=== PATIENT | female | born 1970 | race Caucasian/White ===

== ENCOUNTER 2018-02-12 14:54 | Inpatient (IN) | payer OTHER ==
[~2018-02-12] VITALS: Ht 170.2 cm; Wt 81.5 kg
--- NOTE | 2018-02-12 15:23 | NUR ---
PT ARRIVED TO ED WITH ABD PAIN THAT HAS BEEN PRESENT FOR ABOUT 3 WEEKS. HOWEVER LAST NIGHT SHE WAS WOKEN UP WITH EPIGASTRIC PAIN AND UPPER QUADRANT PAIN. PT REPORTS THAT SHE HAD NOT FELT IT THAT BAD BEFORE. PT REPORTS UNABLE TO EAT OR DRINK ANYTHING AND MULTIPLE EPISODES OF EMESIS. PT REPORTS ALSO VERY SRINGY STOOL. PT CONNECTED TO ALL MONITORS AND CALL LIGHT IN REACH. AWAITING FURTHER ORDERS.
[2018-02-12] MEDS ORDERED: SODIUM CHLORIDE FLUSH 10ML SYR IVF ONE (16:00)
[2018-02-12] MEDS ORDERED: MORPHINE SULFATE 4 MG/ML, 1ML ONE ×2 (16:09→16:50)
[2018-02-12] MEDS ORDERED: ONDANSETRON 2MG/ML, 2ML ONE (16:09)
[2018-02-12] MEDS: MORPHINE SULFATE 4 MG/ML, 1ML IVPush PRN ×2 (16:18→17:05)
--- NOTE | 2018-02-12 16:18 | NUR ---
PT MEDICATED FOR PAIN.
[2018-02-12 16:20] LABS: BASOPHILS # (AUTO) 0.01 x10^3/uL (0-0.1); BASOPHILS % (AUTO) 0 % (0-1); EOSINOPHILS # (AUTO) 0.01 x10^3/uL (0-0.4); EOSINOPHILS % (AUTO) 0 % (1-7); LYMPHOCYTES # (AUTO) 0.49 x10^3/uL (1-3.4); LYMPHOCYTES % (AUTO) 4 % (22-44); MD NO; MEAN CORPUSCULAR HEMOGLOBIN 34.6 pg (27.0-34.8); MEAN CORPUSCULAR HGB CONC 33.4 g/dL (32.4-35.8); MEAN CORPUSCULAR VOLUME 103.6 fL (80-100); MEAN PLATELET VOLUME 8.3 fL (7.4-10.4); MONOCYTES # (AUTO) 0.51 x10^3/uL (0.2-0.8); MONOCYTES % (AUTO) 4 % (2-9); NEUTROPHILS # (AUTO) 11.05 x10^3/uL (1.8-6.8); NEUTROPHILS % (AUTO) 92 % (42-75); PLATELET COUNT 248 x10^3/uL (130-400); RED CELL DISTRIBUTION WIDTH 13.6 % (9.6-15.2)
[2018-02-12 16:22] LABS: ALANINE AMINOTRANSFERASE 190 U/L (12-78); ALBUMIN 4.6 g/dL (3.4-5.0); ANION GAP 14 mmol/L (5-15); CALCIUM 10.1 mg/dL (8.5-10.1); CHLORIDE 104 mmol/L (98-107); CREATININE 0.88 mg/dL (0.55-1.02)
[2018-02-12 16:24] LABS: ALKALINE PHOSPHATASE 100 U/L (45-117); BILIRUBIN,TOTAL 1.9 mg/dL (0.2-1.0); TOTAL PROTEIN 8.4 g/dL (6.4-8.2)
[2018-02-12] MEDS ORDERED: ONDANSETRON 2MG/ML, 2ML IVPush ONE (16:30)
--- NOTE | 2018-02-12 16:45 | NUR ---
piv fluids and second dose of morphine given.
[2018-02-12] MEDS ORDERED: SODIUM CHLORIDE 0.9% 1,000 ML IV ONE (16:59)
[2018-02-12] MEDS ORDERED: SODIUM CHLORIDE FLUSH 10ML SYR IVF PRN (17:00)
[2018-02-12] MEDS: SODIUM CHLORIDE 0.9% 1,000 ML IV SCH ×3 (17:13→23:53)
--- NOTE | 2018-02-12 17:25 | NUR ---
report to layo moura
[2018-02-12] MEDS ORDERED: PROMETHAZINE 25 MG/ML, 1ML IM PRN (17:30)
[2018-02-12] MEDS ORDERED: OMNIPAQUE 350 MG/ML, 100ML BOTTLE ONE (18:00)
[2018-02-12 18:13] VITALS: BP 155/93
[2018-02-12 19:18] VITALS: BP 135/99
[2018-02-12] MEDS: CEFTRIAXONE PMX 1GM/50ML 50 ML IV SCH (19:54)
[2018-02-12] MEDS: HEPARIN 5,000 UNITS/ML, 1ML SQ SCH (19:55)
[2018-02-12] MEDS: morphine SULFATE 10 MG/ML, 1ML IVPush PRN ×2 (20:40→23:58)
[2018-02-12] MEDS: ONDANSETRON 2MG/ML, 2ML IVPush PRN (20:41)
[2018-02-12] MEDS: METRONIDAZOLE PMX 500MG/100ML 100 ML IV SCH (20:41)
[2018-02-12] MEDS ORDERED: DIPHENHYDRAMINE 25 MG CAPSULE PO PRN (21:30)
[2018-02-13 00:50] VITALS: BP 144/94
[2018-02-13] MEDS: SODIUM CHLORIDE 0.9% 1,000 ML IV SCH ×3 (00:59→15:52)
[2018-02-13] MEDS: ONDANSETRON 2MG/ML, 2ML IVPush PRN ×3 (03:45→21:26)
[2018-02-13] MEDS: morphine SULFATE 10 MG/ML, 1ML IVPush PRN ×3 (03:46→11:25)
[2018-02-13] MEDS: METRONIDAZOLE PMX 500MG/100ML 100 ML IV SCH ×4 (03:57→21:26)
[2018-02-13 05:03] LABS: BASOPHILS # (AUTO) 0.06 x10^3/uL (0-0.1); BASOPHILS % (AUTO) 0 % (0-1); EOSINOPHILS % (AUTO) 0 % (1-7); LYMPHOCYTES % (AUTO) 3 % (22-44); MD NO; MEAN CORPUSCULAR HEMOGLOBIN 35.1 pg (27.0-34.8); MEAN CORPUSCULAR HGB CONC 33.8 g/dL (32.4-35.8); MEAN CORPUSCULAR VOLUME 103.8 fL (80-100); MEAN PLATELET VOLUME 8.1 fL (7.4-10.4); MONOCYTES % (AUTO) 7 % (2-9); NEUTROPHILS % (AUTO) 90 % (42-75); PLATELET COUNT 216 x10^3/uL (130-400); RED BLOOD COUNT 4.53 x10^6/uL (3.82-5.3); RED CELL DISTRIBUTION WIDTH 13.9 % (9.6-15.2)
[2018-02-13 05:12] LABS: ALBUMIN 3.5 g/dL (3.4-5.0); ANION GAP 9 mmol/L (5-15); CALCIUM 7.7 mg/dL (8.5-10.1); CHLORIDE 111 mmol/L (98-107)
[2018-02-13 05:15] LABS: ALANINE AMINOTRANSFERASE 117 U/L (12-78); ALKALINE PHOSPHATASE 73 U/L (45-117); BILIRUBIN,TOTAL 1.4 mg/dL (0.2-1.0); CHOL/HDL RATIO 4.6; CHOLESTEROL, TOTAL 213 mg/dL (140-239); CREATININE 0.75 mg/dL (0.55-1.02); HDL CHOL % 22 % (28-40); HDL CHOLESTEROL (DIRECT) 46 mg/dL (40-60); LDL CHOLESTEROL,CALCULATED 149 mg/dL (54-169); TOTAL PROTEIN 6.8 g/dL (6.4-8.2); TRIGLYCERIDES 88 mg/dL (50-200); VLDL CHOLESTEROL 18 mg/dL (0-25)
[2018-02-13 05:16] LABS: LDL/HDL RATIO 3.2 (0.5-3.0)
[2018-02-13] MEDS: HEPARIN 5,000 UNITS/ML, 1ML SQ SCH ×3 (05:33→23:35)
[2018-02-13] MEDS ORDERED: CALCIUM CARBONATE 500 MG TAB.CHEW PO PRN (07:00)
[2018-02-13 07:15] VITALS: BP 156/98
[2018-02-13 08:16] LABS: INTERNATIONAL NORMALIZED RATIO 1.16 (0.93-1.1); PROTHROMBIN TIME 12.2 Seconds (9.6-11.5)
[2018-02-13 12:24] VITALS: BP 135/86
[2018-02-13] MEDS: HYDROcodone/APAP 5/325 TABLET PO PRN ×2 (15:52→21:26)
[2018-02-13] MEDS ORDERED: SODIUM CHLORIDE 0.9% 1,000 ML IV SCH (17:13)
[2018-02-13] MEDS: CEFTRIAXONE PMX 1GM/50ML 50 ML IV SCH (17:37)
[2018-02-13 18:33] VITALS: BP 131/81
[2018-02-14 00:35] VITALS: BP 123/78
[2018-02-14] MEDS: SODIUM CHLORIDE 0.9% 1,000 ML IV SCH ×3 (02:03→18:21)
[2018-02-14] MEDS: METRONIDAZOLE PMX 500MG/100ML 100 ML IV SCH ×4 (03:46→21:19)
[2018-02-14] MEDS: HYDROcodone/APAP 5/325 TABLET PO PRN ×3 (03:59→19:29)
[2018-02-14 05:05] LABS: MEAN CORPUSCULAR HEMOGLOBIN 35.2 pg (27.0-34.8); MEAN CORPUSCULAR HGB CONC 33.5 g/dL (32.4-35.8); MEAN CORPUSCULAR VOLUME 104.9 fL (80-100); MEAN PLATELET VOLUME 8.1 fL (7.4-10.4); PLATELET COUNT 163 x10^3/uL (130-400); RED BLOOD COUNT 4.05 x10^6/uL (3.82-5.3); RED CELL DISTRIBUTION WIDTH 14.3 % (9.6-15.2)
[2018-02-14 05:13] LABS: ALBUMIN 2.7 g/dL (3.4-5.0); ANION GAP 9 mmol/L (5-15); CALCIUM 7.1 mg/dL (8.5-10.1); CHLORIDE 108 mmol/L (98-107)
[2018-02-14 05:18] LABS: ALANINE AMINOTRANSFERASE 66 U/L (12-78); ALKALINE PHOSPHATASE 57 U/L (45-117); BILIRUBIN,TOTAL 1.7 mg/dL (0.2-1.0); CREATININE 0.54 mg/dL (0.55-1.02); TOTAL PROTEIN 5.6 g/dL (6.4-8.2)
[2018-02-14 06:59] LABS: BASOPHILS % (AUTO) 0 % (0-1); EOSINOPHILS # (AUTO) 0.04 x10^3/uL (0-0.4); EOSINOPHILS % (AUTO) 0 % (1-7); LYMPHOCYTES # (AUTO) 0.77 x10^3/uL (1-3.4); LYMPHOCYTES % (AUTO) 5 % (22-44); MD SCAN; MONOCYTES # (AUTO) 1.08 x10^3/uL (0.2-0.8); MONOCYTES % (AUTO) 7 % (2-9); NEUTROPHILS # (AUTO) 12.58 x10^3/uL (1.8-6.8); NEUTROPHILS % (AUTO) 87 % (42-75)
[2018-02-14 07:10] VITALS: BP 145/88
[2018-02-14] MEDS: ENOXAPARIN 40 MG/0.4 ML SQ SCH (09:12)
[2018-02-14] MEDS: CALCIUM CARBONATE 500 MG TAB.CHEW PO SCH ×3 (09:12→21:18)
[2018-02-14] MEDS: morphine SULFATE 10 MG/ML, 1ML IVPush PRN (09:13)
[2018-02-14 13:15] VITALS: BP 153/91
[2018-02-14] MEDS: CEFTRIAXONE PMX 1GM/50ML 50 ML IV SCH (18:20)
[2018-02-14 19:23] VITALS: BP 137/83
[2018-02-15] MEDS: SODIUM CHLORIDE 0.9% 1,000 ML IV SCH ×3 (01:36→17:27)
[2018-02-15 01:43] VITALS: BP 146/92
[2018-02-15] MEDS: morphine SULFATE 10 MG/ML, 1ML IVPush PRN (01:47)
[2018-02-15] MEDS: METRONIDAZOLE PMX 500MG/100ML 100 ML IV SCH ×4 (03:34→22:57)
[2018-02-15 05:27] LABS: BASOPHILS % (AUTO) 0 % (0-1); EOSINOPHILS # (AUTO) 0.05 x10^3/uL (0-0.4); EOSINOPHILS % (AUTO) 0 % (1-7); LYMPHOCYTES # (AUTO) 0.68 x10^3/uL (1-3.4); LYMPHOCYTES % (AUTO) 5 % (22-44); MD NO; MEAN CORPUSCULAR HEMOGLOBIN 35.2 pg (27.0-34.8); MEAN CORPUSCULAR HGB CONC 33.6 g/dL (32.4-35.8); MEAN CORPUSCULAR VOLUME 104.6 fL (80-100); MEAN PLATELET VOLUME 8.3 fL (7.4-10.4); MONOCYTES # (AUTO) 1.13 x10^3/uL (0.2-0.8); MONOCYTES % (AUTO) 9 % (2-9); NEUTROPHILS # (AUTO) 11.34 x10^3/uL (1.8-6.8); NEUTROPHILS % (AUTO) 86 % (42-75); PLATELET COUNT 174 x10^3/uL (130-400); RED BLOOD COUNT 3.73 x10^6/uL (3.82-5.3); RED CELL DISTRIBUTION WIDTH 13.9 % (9.6-15.2)
[2018-02-15 05:36] LABS: ALBUMIN 2.6 g/dL (3.4-5.0); ANION GAP 10 mmol/L (5-15); CALCIUM 6.9 mg/dL (8.5-10.1); CHLORIDE 106 mmol/L (98-107)
[2018-02-15 05:39] LABS: ALANINE AMINOTRANSFERASE 48 U/L (12-78); ALKALINE PHOSPHATASE 68 U/L (45-117); BILIRUBIN,TOTAL 1.3 mg/dL (0.2-1.0); CREATININE 0.47 mg/dL (0.55-1.02); TOTAL PROTEIN 5.7 g/dL (6.4-8.2)
[2018-02-15 07:05] VITALS: BP 150/89
[2018-02-15] MEDS: ENOXAPARIN 40 MG/0.4 ML SQ SCH (08:30)
[2018-02-15] MEDS: HYDROcodone/APAP 5/325 TABLET PO PRN ×3 (08:30→19:14)
[2018-02-15] MEDS: CALCIUM CARBONATE 500 MG TAB.CHEW PO SCH ×3 (08:30→21:39)
[2018-02-15] MEDS ORDERED: SIMETHICONE 80 MG CHEW TAB PO PRN (13:00)
[2018-02-15 14:15] VITALS: BP 153/94
[2018-02-15 18:26] VITALS: BP 140/92
[2018-02-15] MEDS: CEFTRIAXONE PMX 1GM/50ML 50 ML IV SCH (18:46)
[2018-02-16] VITALS (10 sets, daily range): BP systolic 147–184; BP diastolic 84–107
[2018-02-16] MEDS: SODIUM CHLORIDE 0.9% 1,000 ML IV SCH ×2 (02:17→10:00)
[2018-02-16] MEDS: morphine SULFATE 10 MG/ML, 1ML IVPush PRN (02:37)
[2018-02-16] MEDS: LABETALOL 5MG/ML, 20ML IVPush PRN ×3 (02:37→15:55)
[2018-02-16] MEDS: METRONIDAZOLE PMX 500MG/100ML 100 ML IV SCH ×4 (05:36→23:53)
[2018-02-16] MEDS: CALCIUM CARBONATE 500 MG TAB.CHEW PO SCH ×3 (09:16→19:57)
[2018-02-16] MEDS: HYDROcodone/APAP 5/325 TABLET PO PRN ×3 (09:16→23:53)
[2018-02-16] MEDS: ENOXAPARIN 40 MG/0.4 ML SQ SCH (09:16)
[2018-02-16] MEDS: AMLODIPINE 5 MG TABLET PO SCH (13:30)
[2018-02-16] MEDS ORDERED: METR500T PO (15:20)
[2018-02-16] MEDS ORDERED: AMOX1TAB64 PO (15:20)
[2018-02-16] MEDS ORDERED: IBUP100T7 PO (15:20)
[2018-02-16] MEDS ORDERED: CALC200T24 PO (15:20)
[2018-02-16] MEDS ORDERED: ONDA4TAB7 PO (15:20)
[2018-02-16] MEDS: METOPROLOL TARTRATE 50 MG TABLET PO SCH (18:22)
[2018-02-16] MEDS: HYDROCHLOROTHIAZIDE 25 MG TABLET PO SCH (18:22)
[2018-02-16] MEDS: CEFTRIAXONE PMX 1GM/50ML 50 ML IV SCH (19:57)
[2018-02-16] MEDS ORDERED: LABETALOL 20 MG/4 ML IVPush PRN (20:00)
[2018-02-17 05:32] LABS: MEAN CORPUSCULAR HEMOGLOBIN 35.2 pg (27.0-34.8); MEAN CORPUSCULAR VOLUME 103.3 fL (80-100); MEAN PLATELET VOLUME 8.3 fL (7.4-10.4); PLATELET COUNT 304 x10^3/uL (130-400); RED BLOOD COUNT 3.81 x10^6/uL (3.82-5.3); RED CELL DISTRIBUTION WIDTH 13.6 % (9.6-15.2)
[2018-02-17 05:38] LABS: ALBUMIN 2.7 g/dL (3.4-5.0); ANION GAP 11 mmol/L (5-15); CALCIUM 8.4 mg/dL (8.5-10.1); CHLORIDE 99 mmol/L (98-107)
[2018-02-17] MEDS: METOPROLOL TARTRATE 50 MG TABLET PO SCH (05:38)
[2018-02-17] MEDS: METRONIDAZOLE PMX 500MG/100ML 100 ML IV SCH ×2 (05:38→12:18)
[2018-02-17 05:39] VITALS: BP 173/91
[2018-02-17 05:42] LABS: ALANINE AMINOTRANSFERASE 30 U/L (12-78); ALKALINE PHOSPHATASE 77 U/L (45-117); BILIRUBIN,TOTAL 0.9 mg/dL (0.2-1.0); CREATININE 0.38 mg/dL (0.55-1.02); TOTAL PROTEIN 6.1 g/dL (6.4-8.2)
[2018-02-17] MEDS ORDERED: POTASSIUM CHLORIDE 20 MEQ TAB.ER.PRT PO ONE ×2 (06:00→12:00)
[2018-02-17 06:03] LABS: BASOPHILS % (AUTO) 0 % (0-1); EOSINOPHILS # (AUTO) 0.16 x10^3/uL (0-0.4); EOSINOPHILS % (AUTO) 1 % (1-7); LYMPHOCYTES # (AUTO) 1.35 x10^3/uL (1-3.4); LYMPHOCYTES % (AUTO) 10 % (22-44); MD SCAN; MONOCYTES # (AUTO) 0.65 x10^3/uL (0.2-0.8); MONOCYTES % (AUTO) 5 % (2-9); NEUTROPHILS # (AUTO) 11.82 x10^3/uL (1.8-6.8); NEUTROPHILS % (AUTO) 85 % (42-75)
[2018-02-17] MEDS ORDERED: TRAZODONE 50MG TABLET PO PRN (07:30)
[2018-02-17 08:00] VITALS: BP 154/89
[2018-02-17] MEDS ORDERED: POTASSIUM CHLORIDE 20 MEQ TAB.ER.PRT PO SCH (08:00)
[2018-02-17] MEDS: HYDROCHLOROTHIAZIDE 25 MG TABLET PO SCH (09:00)
[2018-02-17] MEDS ORDERED: LISINOPRIL 10 MG TABLET PO SCH (09:00)
[2018-02-17] MEDS: AMLODIPINE 5 MG TABLET PO SCH (09:25)
[2018-02-17] MEDS: ENOXAPARIN 40 MG/0.4 ML SQ SCH (09:25)
[2018-02-17] MEDS: CALCIUM CARBONATE 500 MG TAB.CHEW PO SCH (09:26)
[2018-02-17] MEDS: HYDROcodone/APAP 5/325 TABLET PO PRN ×2 (09:37→16:33)
[2018-02-17 13:52] LABS: ANION GAP 6 mmol/L (5-15); CALCIUM 8.6 mg/dL (8.5-10.1); CHLORIDE 100 mmol/L (98-107); CREATININE 0.46 mg/dL (0.55-1.02)
[2018-02-17 14:00] VITALS: BP_SYST 157; BP_SYST 172; BP_SYST 182; BP_DIAS 103; BP_DIAS 106; BP_DIAS 97
[2018-02-17] MEDS ORDERED: POTA20TA6 PO (14:31)
[2018-02-17] MEDS ORDERED: MAGN400T26 PO (14:31)
[2018-02-17] MEDS ORDERED: HYDR25TA6 PO (14:34)
[2018-02-17] MEDS ORDERED: LISI-167 PO (14:34)
[2018-02-17] MEDS ORDERED: AMLO-150 PO (14:34)
== END 2018-02-17 17:00 | disposition home or self-care (01) | DRG 391 ==
LOC: ED 17:28 → 3NE 17:29 → DCLOUNGE 02-17 16:39
PROVIDERS: ADMIT Hospitalist; ATTEND Hospitalist
DX: K52.9 Noninfective gastroenteritis and colitis, unspecified (principal); K85.20 Alcohol induced acute pancreatitis without necrosis or infection; D75.1 Secondary polycythemia; E86.0 Dehydration; F17.200 Nicotine dependence, unspecified, uncomplicated; I10 Essential (primary) hypertension; I16.0 Hypertensive urgency; K70.11 Alcoholic hepatitis with ascites; K76.0 Fatty (change of) liver, not elsewhere classified; R73.9 Hyperglycemia, unspecified; Z90.89 Acquired absence of other organs
CPT/HCPCS: 36415; 74018; 74021; 74178; 80048; 80053; 80061; 80307; 82330; 83036; 83690; 83735; 85025; 85610; 87040; 93005; 96361; 96374; 96375; G0378; J0696; J1644; J1650; J2405; Q9967; J2270; J3490; J7030; Q0163

== ENCOUNTER 2019-04-03 17:05 | Emergency (ER) | payer OTHER ==
[~2019-04-03] VITALS: Ht 170.2 cm; Wt 63.7 kg
[~2019-04-03 17:05] MED LIST: AMLO-150 PO; AMOX1TAB64 PO; CALC200T24 PO; HYDR25TA6 PO; IBUP100T7 PO; LISI-167 PO; MAGN400T26 PO; METR500T PO; ONDA4TAB7 PO; POTA20TA6 PO
--- NOTE | 2019-04-03 19:16 | NUR ---
PT TO ROOM FROM LOBBY
--- NOTE | 2019-04-03 19:29 | NUR ---
TASK RN: PT AMBULATED STEADILY TO ROOM FROM LOBBY WITH RN. NAD NOTED. PWD; MILD JAUNICE OF SCLERA NOTED. PT REPORTS DIFFUSE, INTERMITTENT ABD CRAMPING X SEVERAL WEEKS. +ANOREXIA AND UNINTENTIONAL WEIGHT LOSS. PAIN WORSE WITH EATING, NON-TENDER TO PALPATION. +NAUSEA. DENIES VOMITING/CP/SOB. LBM YESTERDAY, NORMAL PER PT. HX OF PANCREATITIS, ADMIT TO [facility] FEB 2018. PT DENIES RECENT ETOH USE, DM, OR HX OF CHOLECYSTITIS. BP/SPO2 MONITOR IN PLACE. VSS. LAB IN TO DRAW. UA SENT TO LAB.
[2019-04-03 19:32] LABS: MEAN CORPUSCULAR HEMOGLOBIN 36.1 pg (27.0-34.8); MEAN CORPUSCULAR HGB CONC 32.9 g/dL (32.4-35.8); MEAN CORPUSCULAR VOLUME 109.9 fL (80-100); MEAN PLATELET VOLUME 8.4 fL (7.4-10.4); PLATELET COUNT 603 x10^3/uL (130-400); RED BLOOD COUNT 3.69 x10^6/uL (3.82-5.3); RED CELL DISTRIBUTION WIDTH 16.8 % (9.6-15.2)
[2019-04-03 19:37] LABS: INTERNATIONAL NORMALIZED RATIO 1.2 (0.93-1.1); PROTHROMBIN TIME 12.7 Seconds (9.6-11.5)
[2019-04-03 19:39] LABS: ALANINE AMINOTRANSFERASE 90 U/L (12-78); ALBUMIN 2.5 g/dL (3.4-5.0); ANION GAP 9 mmol/L (5-15); CALCIUM 8.7 mg/dL (8.5-10.1); CHLORIDE 99 mmol/L (98-107); CREATININE 0.71 mg/dL (0.55-1.02)
[2019-04-03 19:41] LABS: ALKALINE PHOSPHATASE 337 U/L (45-117); BILIRUBIN,TOTAL 4.9 mg/dL (0.2-1.0); TOTAL PROTEIN 7.8 g/dL (6.4-8.2)
[2019-04-03 19:50] LABS: MD YES
[2019-04-03 19:52] LABS: ANISOCYTOSIS 1+; BAND#(MANUAL) 1.59 x10^3/uL; BANDS%(MANUAL) 8 % (0-7); LYMPH#(MANUAL) 1.79 x10^3/uL (1-3.4); LYMPHS% (MANUAL) 9 % (22-44); MONOS#(MANUAL) 1.39 x10^3/uL (0.3-2.7); MONOS% (MANUAL) 7 % (2-9); POLYCHROMASIA 1+; SEG#(MANUAL) 15.12 x10^3/uL (1.8-6.8); SEGS% (MANUAL) 76 % (42-75)
[2019-04-03 19:53] LABS: <PLATELET ESTIMATE> INCREASED; <PLT MORPHOLOGY> NORMAL PLT MORPH
--- NOTE | 2019-04-03 20:03 | NUR ---
PT VISITING AT BEDSIDE. CALL LIGHT IN PLACE. WILL CONTINUE TO MONITOR.
--- NOTE | 2019-04-03 20:49 | NUR ---
PT WENT TO CT
--- NOTE | 2019-04-03 21:16 | NUR ---
PT RESTING IN ROOM. REGULAR RESP. NO ACUTE DISTRESS NOTED. PT WATCHING TV. CALL LIGHT IN PLACE. FAMILY AT BEDSIDE. WILL CONTINUE TO MONITOR.
[2019-04-03] MEDS ORDERED: OMNIPAQUE 350 MG/ML, 100ML BOTTLE ONE (21:30)
[2019-04-03 22:54] LABS: BILIRUBIN, DIRECT 3.5 mg/dL (0.1-0.2)
[2019-04-03 23:30] VITALS: BP 133/81
== END 2019-04-03 23:15 | disposition home or self-care (01) ==
LOC: ED 23:15
DX: E80.6 Other disorders of bilirubin metabolism (principal); R74.8 Abnormal levels of other serum enzymes; R10.13 Epigastric pain; D72.829 Elevated white blood cell count, unspecified; R63.0 Anorexia; R11.0 Nausea
CPT/HCPCS: 36415; 74177; 80053; 80074; 80307; 82248; 83615; 83690; 85025; 85610; 99285; Q9967